=== PATIENT | female | born 1985 | race Caucasian/White ===

== ENCOUNTER 2017-02-27 14:26 | Emergency (ER) | payer OTHER ==
[2017-02-27] MEDS ORDERED: methylPREDNISolone SOD SUCCI 125 MG/2 ML VIAL IV STA (14:54)
[2017-02-27] MEDS ORDERED: IPRATROPIUM-ALBUTEROL 3 ML NEB INHALATION STA (14:54)
[2017-02-27] MEDS ORDERED: SODIUM CHLORIDE 0.9% 1,000 ML IV STA (14:54)
[2017-02-27] MEDS ORDERED: SODIUM CHLORIDE 0.9% 500 ML IV STA (14:54)
[2017-02-27] MEDS ORDERED: KETOROLAC 30 MG/ML 1 ML VIAL IVP STA (14:55)
[2017-02-27 15:20] LABS: Basophils % (A) 1 %; CH 23.4; Eosinophils # (A) 0.1 k/uL (0-0.7); Eosinophils % (A) 1 %; HCT 34.9 % (34.0-46.0); HDW 2.84; HGB 10.9 gm/dL (11.4-16.0); Hypochromasia Marked; Luc # (Auto) 0.25; Luc % (Auto) 3; Lymphocytes # (A) 1.1 k/uL (1.0-4.8); Lymphocytes % (A) 14 %; MCH 24.4 pg (25.0-35.0); MCHC 31.3 g/dL (31.0-37.0); MCV 78.1 fL (80.0-100.0); Mean Platelet Volume 6.2; Monocytes # (A) 0.7 k/uL (0-1.0); Monocytes % (A) 9 %; Neutrophils # (A) 5.4 k/uL (1.3-7.7); Neutrophils % (A) 72 %; RBC 4.47 m/uL (3.80-5.40); RDW 13.5 % (11.5-15.5); WBC 7.5 k/uL (3.8-10.6); WBC (Perox) 7.98
--- NOTE | 2017-02-27 15:21 | ED ---
General Adult HPI - General Chief complaint: Extremity Problem,Nontraumatic Stated complaint: Poss Blood Clots Time Seen by Provider: 02/27/17 14:42 Source: patient Mode of arrival: ambulatory Limitations: no limitations - History of Present Illness Initial comments: This 31-year-old white female presents with 2 complaints. She complains of having a cough as well as nasal congestion which started this morning. She has felt short of breath at times. She complains of some pain throughout her head chest and abdomen when she coughs. She denies any actual fever. She denies any history of pulmonary problems but does utilize tobacco regularly. She also is complaining of some right arm pain which she's had for 2 weeks. She denies any injuries. She denies any swelling. She does have a history of previous pulmonary embolism 5 years ago when she was . She is on blood thinners for 6 months afterwards but is on no blood thinners currently. She was sent in from an urgent care to rule out the possibility of an upper extremity DVT. No other complaints or modifying factors. - Related Data Home Medications Medication Instructions Recorded Confirmed Ranitidine HCl [Zantac] 75 mg PO BID 11/02/15 02/27/17 Venlafaxine HCl [Effexor XR] 75 mg PO DAILY 11/02/15 02/27/17 clonazePAM [KlonoPIN] 0.5 mg PO BID 11/02/15 02/27/17 Loratadine [Claritin] 10 mg PO BID 02/27/17 02/27/17 Previous Rx's Medication Instructions Recorded predniSONE 20 mg PO BID #10 tab 02/27/17 Allergies Allergy/AdvReac Type Severity Reaction Status Date / Time No Known Allergies Allergy Verified 02/27/17 15:33 Review of Systems ROS Statement: Those systems with pertinent positive or pertinent negative responses have been documented in the HPI. ROS Other: All systems not noted in ROS Statement are negative. Past Medical History Past Medical History: Deep Vein Thrombosis (DVT) Additional Past Medical History / Comment(s): bipolar History of Any Multi-Drug Resistant Organisms: MRSA Date of last positivie culture/infection: 2012 MDRO Source:: head Past Surgical History: Tonsillectomy Past Psychological History: Bipolar Smoking Status: Current every day smoker Past Alcohol Use History: None Reported Past Drug Use History: Marijuana General Exam - General Exam Comments Initial Comments: GENERAL: The patient is well nourished and well hydrated. VITAL SIGNS: Heart rate, blood pressure, respiratory rate reviewed as recorded in nurse's notes. EYES: Pupils are round and reactive. Extraocular movements are intact. No conjunctival / lid redness or swelling. ENT: No external evidence of injury, swelling, or ecchymosis. Airway is patent. Throat is clear. NECK: Nontender. No swelling or evidence of injury. No subcutaneous emphysema. Trachea is midline. No thyroid mass. HEART: Regular rate and rhythm. Good peripheral pulses. LUNGS/CHEST: There is some mild wheezing noted bilaterally. No respiratory distress. Pulse ox is 100% on room air. No ecchymosis, subcutaneous emphysema , or tenderness. ABDOMEN: Abdomen soft without tenderness. No palpable masses or organomegaly. No peritoneal signs. No abdominal wall swelling or ecchymosis. EXTREMITIES: There is minimal tenderness present to the right arm diffusely. No swelling is identified. Normal muscle tone and function. No thoracolumbar tenderness. NEUROLOGIC: Sensation is grossly intact. Cranial nerve exam reveals face is symmetrical, tongue is midline, speech is clear. SKIN: No abrasions or ecchymosis is noted. No induration or masses noted. PSYCHIATRIC: Alert and oriented. Appropriate behavior and judgment. Limitations: no limitations Course Vital Signs 02/27/17 02/27/17 14:35 16:48 Temperature 99.0 F Pulse Rate 100 90 Respiratory 20 Rate Blood Pressure 126/57 O2 Sat by Pulse 100 Oximetry Medical Decision Making - Medical Decision Making The patient was seen and examined. All diagnostics were reviewed. An EKG was done which shows a normal sinus rhythm at a rate of 100. No acute ST-T wave changes are noted. Intervals are normal. An IV is started and she does receive some IV fluids as well as Toradol. She receives Solu-Medrol intravenously as well as 2 DuoNeb breathing treatments. The laboratory came back all essentially within normal limits except for some mild anemia. The d- dimer was negative. The chest x-ray did not show any pneumonia. The right upper extremity Doppler was negative for any DVT. The influenza was negative. Is felt that she likely does have bronchitis and sinusitis. She was prescribed Augmentin and a cough medication at the urgent care clinic. It is felt as though she may benefit from a steroid is well will be initiated. She does have albuterol HFA at home. This felt as though she is stable for discharge. Return parameters are discussed and she leaves in no distress. - Lab Data Result diagrams: 02/27/17 15:00 02/27/17 15:00 Lab Results 02/27/17 02/27/17 02/27/17 Range/Units 15:00 15:00 15:00 WBC 7.5 (3.8-10.6) k/uL RBC 4.47 (3.80-5.40) m/uL Hgb 10.9 L (11.4-16.0) gm/dL Hct 34.9 (34.0-46.0) % MCV 78.1 L (80.0-100.0) fL MCH 24.4 L (25.0-35.0) pg MCHC 31.3 (31.0-37.0) g/dL RDW 13.5 (11.5-15.5) % Plt Count 555 H (150-450) k/uL Neutrophils % 72 % Lymphocytes % 14 % Monocytes % 9 % Eosinophils % 1 % Basophils % 1 % Neutrophils # 5.4 (1.3-7.7) k/uL Lymphocytes # 1.1 (1.0-4.8) k/uL Monocytes # 0.7 (0-1.0) k/uL Eosinophils # 0.1 (0-0.7) k/uL Basophils # 0.0 (0-0.2) k/uL Hypochromasia Marked PT (9.0-12.0) sec INR (<1.1) APTT (22.0-30.0) sec D-Dimer (<0.60) mg/L FEU Sodium 141 (137-145) mmol/L Potassium 4.3 (3.5-5.1) mmol/L Chloride 104 (98-107) mmol/L Carbon Dioxide 25 (22-30) mmol/L Anion Gap 12 mmol/L BUN 8 (7-17) mg/dL Creatinine 0.67 (0.52-1.04) mg/dL Est GFR (MDRD) Af Amer >60 (>60 ml/min/1.73 sqM) Est GFR (MDRD) Non-Af >60 (>60 ml/min/1.73 sqM) Glucose 95 (74-99) mg/dL Calcium 9.3 (8.4-10.2) mg/dL Total Bilirubin 1.3 (0.2-1.3) mg/dL AST 19 (14-36) U/L ALT 24 (9-52) U/L Alkaline Phosphatase 68 (38-126) U/L Total Creatine Kinase 53 (30-135) U/L CK-MB (CK-2) <0.2 (0.0-2.4) ng/mL CK-MB (CK-2) Rel Index Troponin I <0.012 (0.000-0.034) ng/mL Total Protein 7.5 (6.3-8.2) g/dL Albumin 4.3 (3.5-5.0) g/dL HCG, Qual Not Detected Influenza Type A RNA (Not Detectd) Influenza Type B (PCR) (Not Detectd) 02/27/17 02/27/17 Range/Units 15:00 15:24 WBC (3.8-10.6) k/uL RBC (3.80-5.40) m/uL Hgb (11.4-16.0) gm/dL Hct (34.0-46.0) % MCV (80.0-100.0) fL MCH (25.0-35.0) pg MCHC (31.0-37.0) g/dL RDW (11.5-15.5) % Plt Count (150-450) k/uL Neutrophils % % Lymphocytes % % Monocytes % % Eosinophils % % Basophils % % Neutrophils # (1.3-7.7) k/uL Lymphocytes # (1.0-4.8) k/uL Monocytes # (0-1.0) k/uL Eosinophils # (0-0.7) k/uL Basophils # (0-0.2) k/uL Hypochromasia PT 12.7 H (9.0-12.0) sec INR 1.3 (<1.1) APTT 24.6 (22.0-30.0) sec D-Dimer 0.18 (<0.60) mg/L FEU Sodium (137-145) mmol/L Potassium (3.5-5.1) mmol/L Chloride (98-107) mmol/L Carbon Dioxide (22-30) mmol/L Anion Gap mmol/L BUN (7-17) mg/dL Creatinine (0.52-1.04) mg/dL Est GFR (MDRD) Af Amer (>60 ml/min/1.73 sqM) Est GFR (MDRD) Non-Af (>60 ml/min/1.73 sqM) Glucose (74-99) mg/dL Calcium (8.4-10.2) mg/dL Total Bilirubin (0.2-1.3) mg/dL AST (14-36) U/L ALT (9-52) U/L Alkaline Phosphatase (38-126) U/L Total Creatine Kinase (30-135) U/L CK-MB (CK-2) (0.0-2.4) ng/mL CK-MB (CK-2) Rel Index Troponin I (0.000-0.034) ng/mL Total Protein (6.3-8.2) g/dL Albumin (3.5-5.0) g/dL HCG, Qual Influenza Type A RNA Not Detected (Not Detectd) Influenza Type B (PCR) Not Detected (Not Detectd) Disposition Clinical Impression: Bronchospasm with bronchitis, acute, Sinusitis, Right arm pain, Anemia Disposition: HOME SELF-CARE Condition: Good Instructions: Acute Bronchitis (ED), Sinusitis (ED), Anemia (ED), Arm Pain (ED) Prescriptions: predniSONE 20 mg PO BID #10 tab Referrals: Kasia Pitt MD [Primary Care Provider] - 1-2 days Time of Disposition: 16:59
[2017-02-27 15:31] LABS: ALT 24 U/L (9-52); AST 19 U/L (14-36); Alkaline Phosphatase 68 U/L (38-126); Anion Gap 12 mmol/L; Blood Urea Nitrogen 8 mg/dL (7-17); Calcium 9.3 mg/dL (8.4-10.2); Carbon Dioxide 25 mmol/L (22-30); Chloride 104 mmol/L (98-107); Glucose 95 mg/dL (74-99); Non-African American GFR(MDRD) >60 (>60 ml/min/1.73 sqM); Potassium 4.3 mmol/L (3.5-5.1); Sodium 141 mmol/L (137-145); Total Bilirubin 1.3 mg/dL (0.2-1.3); Total Protein 7.5 g/dL (6.3-8.2)
[2017-02-27 15:33] LABS: INR 1.3 (<1.1); Partial Thromboplastin Time 24.6 sec (22.0-30.0); Prothrombin Time 12.7 sec (9.0-12.0)
[2017-02-27 15:48] LABS: Creatine Kinase 53 U/L (30-135)
[2017-02-27 15:54] LABS: HCG,Qualitative Serum Not Detected
[2017-02-27 16:02] LABS: Creatine Kinase MB <0.2 ng/mL (0.0-2.4); Troponin I <0.012 ng/mL (0.000-0.034)
--- NOTE | 2017-02-27 16:19 | US ---
EXAMINATION TYPE: US venous doppler duplex UE RT DATE OF EXAM: 02/27/2017 4:01 PM COMPARISON: NONE CLINICAL HISTORY: Pain. Numbness/tingling of arm, no trauma SIDE PERFORMED: right compression and/ or demonstrated Right Arm: Negative for DVT IMPRESSION: THIS EXAMINATION IS NEGATIVE FOR DVT IN THE RIGHT ARM.
--- NOTE | 2017-02-27 16:25 | XR ---
EXAMINATION TYPE: XR chest 2V DATE OF EXAM ORDERED: 02/27/2017 4:21 PM HISTORY: difficulty breathing. REFERENCE: Previous study dated 7:26 PM. FINDINGS: The lungs are clear. Pleural spaces are clear. Heart size is normal. IMPRESSION: NORMAL CHEST.
[2017-02-27 17:13] VITALS: BP 136/60; PULSE 101; RESP 16; TEMP 99.1
== END 2017-02-27 17:13 | disposition home or self-care (01) ==
LOC: EC 14:26
DX: J20.9 Acute bronchitis, unspecified (principal); M79.601 Pain in right arm; D64.9 Anemia, unspecified; J32.9 Chronic sinusitis, unspecified; F17.200 Nicotine dependence, unspecified, uncomplicated; Z79.899 Other long term (current) drug therapy
CPT/HCPCS: 99284; 96374; 96375; 96361 ×2; 36415; 94640; 93005; 85379; 80053; 82550; 82553; 84484; 85025; 85610; 85730; 84703; 87040; 87502; 71020; 93971; J2930; J1885

== ENCOUNTER 2017-04-08 09:09 | Emergency (ER) | payer OTHER ==
[2017-04-08 09:33] VITALS: RESP 18
[2017-04-08] MEDS ORDERED: ONDANSETRON 4 MG/2 ML VIAL IVP STA (09:47)
[2017-04-08] MEDS ORDERED: SODIUM CHLORIDE 0.9% 1,000 ML IV STA (09:47)
[2017-04-08] MEDS ORDERED: FAMOTIDINE 20 MG/2 ML VIAL IV STA (09:47)
[2017-04-08] MEDS ORDERED: KETOROLAC 30 MG/ML 1 ML VIAL IVP STA (09:48)
--- NOTE | 2017-04-08 10:24 | ED ---
General Adult HPI - General Chief complaint: Abdominal Pain Stated complaint: Abd Pain Time Seen by Provider: 04/08/17 09:34 Source: patient, RN notes reviewed Mode of arrival: ambulatory Limitations: no limitations - History of Present Illness Initial comments: Patient is a 31-year-old female who presents emergency room today with chief complaint of increased back and abdominal pain that started this morning approximately 6 AM. Does admit to symptoms of nausea vomiting as well. Patient mitts pain in the middle of her lower back. States had similar pain to this in the past but is been a while. Denies any injury or trauma. Does admit to generalized abdominal pain and cramping in her abdomen. Patient denies any recent fever, chills, shortness of breath, chest pain, numbness or tingling, dysuria or hematuria, constipation or diarrhea, headaches or visual changes, or any other complaints. - Related Data Home Medications Medication Instructions Recorded Confirmed Ranitidine HCl [Zantac] 75 mg PO BID 11/02/15 04/08/17 Venlafaxine HCl [Effexor XR] 75 mg PO DAILY 11/02/15 04/08/17 clonazePAM [KlonoPIN] 0.5 mg PO BID 11/02/15 04/08/17 Loratadine [Claritin] 10 mg PO BID 02/27/17 04/08/17 Previous Rx's Medication Instructions Recorded Famotidine [Pepcid] 20 mg PO BID #20 tablet 04/08/17 Ondansetron Odt [Zofran ODT] 4 mg PO Q8HR PRN #20 tab 04/08/17 Allergies Allergy/AdvReac Type Severity Reaction Status Date / Time No Known Allergies Allergy Verified 04/08/17 10:42 Review of Systems ROS Statement: Those systems with pertinent positive or pertinent negative responses have been documented in the HPI. ROS Other: All systems not noted in ROS Statement are negative. Past Medical History Past Medical History: Deep Vein Thrombosis (DVT) Additional Past Medical History / Comment(s): bipolar History of Any Multi-Drug Resistant Organisms: MRSA Date of last positivie culture/infection: 2012 MDRO Source:: head Past Surgical History: Tonsillectomy Past Psychological History: Bipolar Smoking Status: Current every day smoker Past Alcohol Use History: None Reported Past Drug Use History: Marijuana General Exam - General Exam Comments Initial Comments: General: The patient is awake and alert, in no distress, and does not appear acutely ill. Eye: Pupils are equal, round and reactive to light, extra-ocular movements are intact. No nystagmus. There is normal conjunctiva bilaterally. No signs of icterus. Ears, nose, mouth and throat: There are moist mucous membranes and no oral lesions. Neck: The neck is supple, there is no tenderness or JVD. Cardiovascular: There is a regular rate and rhythm. No murmur, rub or gallop is appreciated. Respiratory: Lungs are clear to auscultation, respirations are non-labored, breath sounds are equal. No wheezes, stridor, rales, or rhonchi. Gastrointestinal: Normal appearance the abdomen. Normal bowel sounds. Abdomen soft on palpation. Patient does have tenderness in epigastric and lower quadrant. No rebound tenderness. No guarding. No CVA tenderness. Musculoskeletal: Normal ROM, no tenderness. Strength 5/5. Sensation intact. Pulses equal bilaterally 2+. Neurological: A&O x 3. CN II-XII intact, There are no obvious motor or sensory deficits. Coordination appears grossly intact. Speech is normal. Skin: Skin is warm and dry and no rashes or lesions are noted. Psychiatric: Cooperative, appropriate mood & affect, normal judgment. Limitations: no limitations Course Vital Signs 04/08/17 09:30 Temperature 98.0 F Pulse Rate 89 Respiratory 18 Rate Blood Pressure 119/65 O2 Sat by Pulse 100 Oximetry Medical Decision Making - Medical Decision Making Patient reexamined at this time shows no signs of distress. Patient's labs been reviewed. Patient resting comfortably in the stretcher. Abdomen soft nontender on repeat exam. Patient feeling better. Patient will be discharged home with nausea medication and Pepcid for symptoms. Advised to follow-up with family doctor or return here to emergency room if any symptoms increase worsen. - Lab Data Result diagrams: 04/08/17 10:05 04/08/17 10:05 Lab Results 04/08/17 04/08/17 04/08/17 Range/Units 10:05 10:05 10:05 WBC 11.5 H (3.8-10.6) k/uL RBC 4.50 (3.80-5.40) m/uL Hgb 11.2 L (11.4-16.0) gm/dL Hct 36.8 (34.0-46.0) % MCV 81.7 (80.0-100.0) fL MCH 24.9 L (25.0-35.0) pg MCHC 30.5 L (31.0-37.0) g/dL RDW 17.3 H (11.5-15.5) % Plt Count 474 H (150-450) k/uL Neutrophils % 83 % Lymphocytes % 10 % Monocytes % 5 % Eosinophils % 1 % Basophils % 0 % Neutrophils # 9.5 H (1.3-7.7) k/uL Lymphocytes # 1.2 (1.0-4.8) k/uL Monocytes # 0.5 (0-1.0) k/uL Eosinophils # 0.1 (0-0.7) k/uL Basophils # 0.0 (0-0.2) k/uL Hypochromasia Marked Anisocytosis Slight Sodium 140 (137-145) mmol/L Potassium 4.7 (3.5-5.1) mmol/L Chloride 107 (98-107) mmol/L Carbon Dioxide 23 (22-30) mmol/L Anion Gap 10 mmol/L BUN 14 (7-17) mg/dL Creatinine 0.58 (0.52-1.04) mg/dL Est GFR (MDRD) Af Amer >60 (>60 ml/min/1.73 sqM) Est GFR (MDRD) Non-Af >60 (>60 ml/min/1.73 sqM) Glucose 96 (74-99) mg/dL Calcium 9.3 (8.4-10.2) mg/dL Total Bilirubin 0.4 (0.2-1.3) mg/dL AST 18 (14-36) U/L ALT 20 (9-52) U/L Alkaline Phosphatase 61 (38-126) U/L Total Protein 7.3 (6.3-8.2) g/dL Albumin 4.1 (3.5-5.0) g/dL Amylase 43 (30-110) U/L Lipase 52 (23-300) U/L Urine Color Urine Appearance (Clear) Urine pH (5.0-8.0) Ur Specific [place] (1.001-1.035) Urine Protein (Negative) Urine Glucose (UA) (Negative) Urine Ketones (Negative) Urine Blood (Negative) Urine Nitrite (Negative) Urine Bilirubin (Negative) Urine Urobilinogen (<2.0) mg/dL Ur Leukocyte Esterase (Negative) Urine HCG, Qual Not Detected (Not Detectd) 04/08/17 Range/Units 10:05 WBC (3.8-10.6) k/uL RBC (3.80-5.40) m/uL Hgb (11.4-16.0) gm/dL Hct (34.0-46.0) % MCV (80.0-100.0) fL MCH (25.0-35.0) pg MCHC (31.0-37.0) g/dL RDW (11.5-15.5) % Plt Count (150-450) k/uL Neutrophils % % Lymphocytes % % Monocytes % % Eosinophils % % Basophils % % Neutrophils # (1.3-7.7) k/uL Lymphocytes # (1.0-4.8) k/uL Monocytes # (0-1.0) k/uL Eosinophils # (0-0.7) k/uL Basophils # (0-0.2) k/uL Hypochromasia Anisocytosis Sodium (137-145) mmol/L Potassium (3.5-5.1) mmol/L Chloride (98-107) mmol/L Carbon Dioxide (22-30) mmol/L Anion Gap mmol/L BUN (7-17) mg/dL Creatinine (0.52-1.04) mg/dL Est GFR (MDRD) Af Amer (>60 ml/min/1.73 sqM) Est GFR (MDRD) Non-Af (>60 ml/min/1.73 sqM) Glucose (74-99) mg/dL Calcium (8.4-10.2) mg/dL Total Bilirubin (0.2-1.3) mg/dL AST (14-36) U/L ALT (9-52) U/L Alkaline Phosphatase (38-126) U/L Total Protein (6.3-8.2) g/dL Albumin (3.5-5.0) g/dL Amylase (30-110) U/L Lipase (23-300) U/L Urine Color Yellow Urine Appearance Clear (Clear) Urine pH 6.0 (5.0-8.0) Ur Specific [place] 1.022 (1.001-1.035) Urine Protein Negative (Negative) Urine Glucose (UA) Negative (Negative) Urine Ketones Negative (Negative) Urine Blood Negative (Negative) Urine Nitrite Negative (Negative) Urine Bilirubin Negative (Negative) Urine Urobilinogen <2.0 (<2.0) mg/dL Ur Leukocyte Esterase Negative (Negative) Urine HCG, Qual (Not Detectd) Disposition Clinical Impression: Abdominal pain Disposition: HOME SELF-CARE Condition: Good Instructions: Abdominal Pain (ED) Additional Instructions: Please use medication as discussed. Please follow-up with family doctor in the next 2 days of symptoms have not improved. Please return to emergency room if the symptoms increase or worsen or for any other concerns. Prescriptions: Famotidine [Pepcid] 20 mg PO BID #20 tablet Ondansetron Odt [Zofran ODT] 4 mg PO Q8HR PRN #20 tab PRN Reason: Nausea Referrals: Kasia Pitt MD [Primary Care Provider] - 1-2 days Time of Disposition: 11:05
[2017-04-08 10:26] LABS: Anisocytosis Slight; Basophils % (A) 0 %; CH 24.5; Eosinophils # (A) 0.1 k/uL (0-0.7); Eosinophils % (A) 1 %; HCT 36.8 % (34.0-46.0); HDW 2.53; HGB 11.2 gm/dL (11.4-16.0); Hypochromasia Marked; Luc # (Auto) 0.17; Luc % (Auto) 2; Lymphocytes # (A) 1.2 k/uL (1.0-4.8); Lymphocytes % (A) 10 %; MCH 24.9 pg (25.0-35.0); MCHC 30.5 g/dL (31.0-37.0); MCV 81.7 fL (80.0-100.0); Mean Platelet Volume 6.4; Monocytes # (A) 0.5 k/uL (0-1.0); Monocytes % (A) 5 %; Neutrophils # (A) 9.5 k/uL (1.3-7.7); Neutrophils % (A) 83 %; RDW 17.3 % (11.5-15.5); WBC 11.5 k/uL (3.8-10.6); WBC (Perox) 12.11
[2017-04-08 10:37] LABS: Appearance,Urine Clear (Clear); Bilirubin,Urine Negative (Negative); Glucose,Urine (UA) Negative (Negative); Ketones,Urine Negative (Negative); Leukocyte Esterase,Urine Negative (Negative); Nitrite,Urine Negative (Negative); Protein,Urine Negative (Negative); Specific Gravity,Urine 1.022 (1.001-1.035); UA Billing (MACRO vs. MICRO) CHEM; Urobilinogen,Urine <2.0 mg/dL (<2.0)
[2017-04-08 10:39] LABS: ALT 20 U/L (9-52); AST 18 U/L (14-36); Alkaline Phosphatase 61 U/L (38-126); Amylase 43 U/L (30-110); Anion Gap 10 mmol/L; Blood Urea Nitrogen 14 mg/dL (7-17); Calcium 9.3 mg/dL (8.4-10.2); Carbon Dioxide 23 mmol/L (22-30); Chloride 107 mmol/L (98-107); Glucose 96 mg/dL (74-99); Non-African American GFR(MDRD) >60 (>60 ml/min/1.73 sqM); Potassium 4.7 mmol/L (3.5-5.1); Sodium 140 mmol/L (137-145); Total Bilirubin 0.4 mg/dL (0.2-1.3); Total Protein 7.3 g/dL (6.3-8.2)
--- NOTE | 2017-04-08 10:55 | XR ---
EXAMINATION TYPE: XR KUB DATE OF EXAM: 04/08/2017 10:52 AM COMPARISON: 07/01/2016 HISTORY: Nausea and vomiting TECHNIQUE: One view abdominal series FINDINGS: The osseous structures are intact. The bowel gas pattern is nonspecific. Lung bases are clear. Intr auterine device noted. IMPRESSION: 1. Nonspecific abdomen.
[2017-04-08 11:14] VITALS: BP 140/78; PULSE 69; TEMP 97.9
== END 2017-04-08 11:35 | disposition home or self-care (01) ==
LOC: EC 09:09
DX: R10.84 Generalized abdominal pain (principal); M54.5 Low back pain; R11.2 Nausea with vomiting, unspecified; F31.9 Bipolar disorder, unspecified; F17.200 Nicotine dependence, unspecified, uncomplicated; Z79.899 Other long term (current) drug therapy
CPT/HCPCS: 36415; 80053; 82150; 83690; 85025; 81003; 81025; 74000; 99284; 96374; 96375 ×2; 96361; J2405; J1885

== ENCOUNTER 2021-10-14 15:15 | Emergency (ER) | payer OTHER ==
--- NOTE | 2021-10-14 16:05 | XR ---
EXAMINATION TYPE: XR chest 2V DATE OF EXAM: 10/14/2021 COMPARISON: 10/27/2017 HISTORY: Cough TECHNIQUE: 2 views FINDINGS: Heart and mediastinum are normal. Lungs are clear. Diaphragm is normal. Bony thorax is inta ct. IMPRESSION: Normal chest. No change.
--- NOTE | 2021-10-14 18:52 | ED ---
General Adult HPI - General Chief complaint: Shortness of Breath Stated complaint: covid+/throat pain Time Seen by Provider: 10/14/21 18:28 Source: patient, RN notes reviewed, old records reviewed Mode of arrival: ambulatory Limitations: no limitations - History of Present Illness Initial comments: Patient is a 35-year-old female who is a known Covid positive for the last 3 weeks presents emergency department over concern for sore throat and swollen lymph nodes in her neck. She is concerned she may also a strep throat. She is also complaining of some mild sinus tenderness. Denies any fevers. He is tolerating by mouth intake. He was not vaccinated for COVID-19. Denies any cough, shortness of breath. Denies any known sick contacts. Denies any chest pain, abdominal pain, nausea, vomiting. She has no other acute complaints at this time. I evaluated the patient when she was placed in a room. - Related Data Home Medications Medication Instructions Recorded Confirmed Loratadine [Claritin] 10 mg PO BID 02/27/17 10/27/17 Naproxen 500 mg PO Q12H 10/27/17 10/27/17 Ranitidine HCl [Zantac] 150 mg PO BID 10/27/17 10/27/17 Venlafaxine HCl [Effexor XR] 150 mg PO HS 10/27/17 10/27/17 lamoTRIgine [LaMICtal] 25 mg PO BID 10/27/17 10/27/17 Previous Rx's Medication Instructions Recorded Hydrocodone/Acetaminophen [[place] 1 each PO Q4HR PRN #10 tab 10/27/17 5-325] Ibuprofen [Motrin] 600 mg PO Q6HR PRN #20 tab 10/27/17 Allergies Allergy/AdvReac Type Severity Reaction Status Date / Time No Known Allergies Allergy Verified 10/14/21 15:33 Review of Systems ROS Statement: Those systems with pertinent positive or pertinent negative responses have been documented in the HPI. Review of Systems: CONST: Denies fever EYES: Denies blurry vision ENT: Endorses nasal congestion, sore throat. C/V: Denies Chest pain RESP: Denies shortness of breath GI: Denies abdominal pain : Denies dysuria SKIN: Denies rash. MSK: Denies joint pain. NEURO: Denies headache ROS Other: All systems not noted in ROS Statement are negative. Past Medical History Past Medical History: Deep Vein Thrombosis (DVT) Additional Past Medical History / Comment(s): bipolar History of Any Multi-Drug Resistant Organisms: MRSA Date of last positivie culture/infection: 2012 MDRO Source:: head Past Surgical History: Hernia Repair, Tonsillectomy Additional Past Surgical History / Comment(s): kidney repair surg eye correction Past Psychological History: Bipolar Smoking Status: Current every day smoker Past Alcohol Use History: None Reported Past Drug Use History: Marijuana General Exam - General Exam Comments Initial Comments: General: Appears in no acute distress. Nontoxic appearing. HEAD: Normal with no signs of head trauma. EYES: PERRLA, EOMI, conjunctiva normal, no discharge. ENT: Grossly intact. Erythematous posterior oropharynx without exudates. No swelling. Uvula is midline. No stridor auscultated. Patient does have some bilateral submandibular lymph node mild swelling. No swelling of the floor the mouth. RESPIRATORY: Clear breath sounds bilaterally. No wheezes, rales, or rhonchi. C/V: Initially tachycardic in triage but currently regular rate and rhythm. S1 and S2 auscultated. No peripheral edema. Peripheral pulses are 2+ intact throughout. ABD: Abd is soft, nontender, nondistended EXT: Normal range of motion, no obvious deformity SKIN: No rashes or lesions observed on exposed skin. NEURO: Alert and oriented 4. Limitations: no limitations Course Vital Signs 10/14/21 10/14/21 15:30 19:01 Temperature 98 F 98.1 F Pulse Rate 108 H 72 Respiratory 20 18 Rate Blood Pressure 117/66 128/78 O2 Sat by Pulse 96 97 Oximetry Medical Decision Making - Medical Decision Making Based on the patient's presentation and physical exam, she already knows she is COVID-19 positive and tested positive multiple weeks ago. She does not qualify for Bham therapy. She is concerned she may strep throat if she does have a history of it. She otherwise is nontoxic appearing is no acute complaints at this time. Chest x-ray was ordered but triage which revealed no acute cardio pulmonary process. I discussed with her obtaining a strep throat swab. She was in agreement this plan. She'll be discharged home and I will contact her with the results. Her phone number was provided to me and is [phone]. I counseled her on on hot/cold drinks to soothe the throat as well as Tylenol Motrin. She was in agreement this plan. Patient was therefore discharged home in fair condition. Strep throat swabs returned negative. I called the patient and updated her. She expressed understanding. No antibiotic is required at this time. I explained That she is likely expressing a viral illness and to return to the emergency department if there are any worsening complaints. She was in agreement this plan. Strict return precautions were provided to the patient. - Lab Data Lab Results 10/14/21 Range/Units 18:46 Group A Strep Rapid Negative (Negative) Disposition Clinical Impression: Sore throat, Viral URI Disposition: HOME SELF-CARE Condition: Fair Instructions (If sedation given, give patient instructions): Strep Throat (ED) Is patient prescribed a controlled substance at d/c from ED?: No Referrals: Alvino Frank MD [Primary Care Provider] - 1-2 days
[2021-10-14 19:04] VITALS: BP 128/78; PULSE 72; RESP 18; TEMP 98.1
== END 2021-10-14 19:04 | disposition home or self-care (01) ==
LOC: EC 15:15
DX: U07.1 COVID-19 (principal); J02.8 Acute pharyngitis due to other specified organisms; F17.200 Nicotine dependence, unspecified, uncomplicated
CPT/HCPCS: 71046; 87081; 87430; 99283

== ENCOUNTER 2022-03-13 11:24 | Emergency (ER) | payer OTHER ==
[2022-03-13 11:32] VITALS: TEMP 97.9
--- NOTE | 2022-03-13 12:10 | ED ---
General Adult HPI - General Chief complaint: Upper Respiratory Infection Stated complaint: covid test Time Seen by Provider: 03/13/22 11:44 Source: patient Mode of arrival: ambulatory Limitations: no limitations - History of Present Illness Initial comments: This 36-year-old female presents emergency Department requesting to be tested for COVID-19. Patient states her daughter currently has symptoms of COVID-19 such as nasal congestion, cough and headache. Patient states she tested for COVID-19 within a home test this morning which did come back as positive. Patient states she is currently asymptomatic and states she feels well. Patient denies any chest pain, shortness of breath, abdominal pain, nausea, vomiting, sore throat, change in vision, blurred vision, lightheadedness, dizziness, nasal congestion, headache, earache. - Related Data Home Medications Medication Instructions Recorded Confirmed Loratadine [Claritin] 10 mg PO BID 02/27/17 10/27/17 Naproxen 500 mg PO Q12H 10/27/17 10/27/17 Ranitidine HCl [Zantac] 150 mg PO BID 10/27/17 10/27/17 Venlafaxine HCl [Effexor XR] 150 mg PO HS 10/27/17 10/27/17 lamoTRIgine [LaMICtal] 25 mg PO BID 10/27/17 10/27/17 Previous Rx's Medication Instructions Recorded Hydrocodone/Acetaminophen [[place] 1 each PO Q4HR PRN #10 tab 10/27/17 5-325] Ibuprofen [Motrin] 600 mg PO Q6HR PRN #20 tab 10/27/17 Allergies Allergy/AdvReac Type Severity Reaction Status Date / Time No Known Allergies Allergy Verified 03/13/22 11:27 Review of Systems ROS Statement: Those systems with pertinent positive or pertinent negative responses have been documented in the HPI. ROS Other: All systems not noted in ROS Statement are negative. Past Medical History Past Medical History: Deep Vein Thrombosis (DVT) Additional Past Medical History / Comment(s): bipolar History of Any Multi-Drug Resistant Organisms: MRSA Date of last positivie culture/infection: 2012 MDRO Source:: head Past Surgical History: Hernia Repair, Tonsillectomy Additional Past Surgical History / Comment(s): kidney repair surg eye correction Past Psychological History: Bipolar Smoking Status: Current every day smoker Past Alcohol Use History: None Reported Past Drug Use History: Marijuana General Exam Limitations: no limitations General appearance: alert, in no apparent distress Head exam: Present: atraumatic, normocephalic, normal inspection Eye exam: Present: normal appearance, PERRL, EOMI. Absent: scleral icterus, conjunctival injection, periorbital swelling Pupils: Present: normal accommodation ENT exam: Present: normal exam, normal oropharynx, mucous membranes moist Neck exam: Present: normal inspection, full ROM. Absent: tenderness, meningismus, lymphadenopathy Respiratory exam: Present: normal lung sounds bilaterally. Absent: respiratory distress, wheezes, rales, rhonchi, stridor, chest wall tenderness Cardiovascular Exam: Present: regular rate, normal rhythm, normal heart sounds. Absent: systolic murmur, diastolic murmur, rubs, gallop, clicks GI/Abdominal exam: Present: soft, normal bowel sounds. Absent: distended, tenderness, guarding, rebound, rigid Extremities exam: Present: normal inspection, full ROM, normal capillary refill. Absent: tenderness, pedal edema, joint swelling, calf tenderness Back exam: Absent: CVA tenderness (R), CVA tenderness (L), paraspinal tenderness, vertebral tenderness Neurological exam: Present: alert, oriented X3, CN II-XII intact Psychiatric exam: Present: normal affect, normal mood Skin exam: Present: warm, dry, intact, normal color. Absent: rash Course Vital Signs 03/13/22 03/13/22 11:27 12:10 Temperature 97.9 F Pulse Rate 96 Respiratory 16 18 Rate Blood Pressure 143/77 O2 Sat by Pulse 100 Oximetry Medical Decision Making - Medical Decision Making This 36-year-old female presented to the emergency department requesting to get tested for COVID-19. COVID-19 nasal swab was negative. Patient is currently asymptomatic. Patient instructed to follow up with her primary care provider or return here with any concerning symptoms. Strict return precautions were discussed. Patient verbally agreed to plan. Patient sent home in stable condition. Case discussed in detail my attending, Dr. Avelar. - Lab Data Lab Results 03/13/22 Range/Units 11:52 Coronavirus (PCR) Not Detected (Not Detectd) Disposition Clinical Impression: Encounter for screening laboratory testing for COVID-19 virus Disposition: HOME SELF-CARE Condition: Stable Additional Instructions: Please return to the emergency department with any new or concerning symptoms. Is patient prescribed a controlled substance at d/c from ED?: No Referrals: Alvino Frank MD [Primary Care Provider] - 1-2 days Time of Disposition: 13:01
[2022-03-13 12:26] VITALS: RESP 18
[2022-03-13 13:13] VITALS: BP 138/80; PULSE 88
== END 2022-03-13 13:10 | disposition home or self-care (01) ==
LOC: EC 11:24
DX: Z20.822 Contact with and (suspected) exposure to COVID-19 (principal); F17.200 Nicotine dependence, unspecified, uncomplicated
CPT/HCPCS: 87635; 99284

== ENCOUNTER 2023-04-02 18:20 | Emergency (ER) | payer OTHER ==
--- NOTE | 2023-04-02 20:00 | ED ---
General Adult HPI - General Chief complaint: Recheck/Abnormal Lab/Rx Stated complaint: High Blood Pressure Time Seen by Provider: 04/02/23 19:40 Source: patient, RN notes reviewed Mode of arrival: ambulatory Limitations: no limitations - History of Present Illness Initial comments: 37-year-old female presents to the emergency department chief complaint of fast heart rate and high blood pressure. Patient states that she was seen at [facility] earlier today for hives where she was given steroids discharged home. While there, she states that she was watching the monitor and her heart rate was around 45. She states that she asked the nurse why it was so low and was told it was likely the monitor. Patient continued to monitor her h eart rate when she got home and states that it was in the 120s then would go down to the 50s. She states that she was monitoring her blood pressure at home and it was elevated. In triage, her blood pressure was 127/75. She states that she feels tired but otherwise feels well. Denies chest pain, shortness of breath. Denies fever. - Related Data Home Medications Medication Instructions Recorded Confirmed Venlafaxine HCl [Effexor XR] 150 mg PO HS 10/27/17 04/02/23 Cholecalciferol [Vitamin D3 (25 25 mcg PO HS 04/02/23 04/02/23 Mcg = 1000 Iu)] clonazePAM [KlonoPIN] 0.5 mg PO BID PRN 04/02/23 04/02/23 lamoTRIgine [LaMICtal] 200 mg PO HS 04/02/23 04/02/23 Allergies Allergy/AdvReac Type Severity Reaction Status Date / Time No Known Allergies Allergy Verified 04/02/23 21:04 Review of Systems ROS Statement: Those systems with pertinent positive or pertinent negative responses have been documented in the HPI. ROS Other: All systems not noted in ROS Statement are negative. Past Medical History Past Medical History: Blood Disorder, Deep Vein Thrombosis (DVT) Additional Past Medical History / Comment(s): bipolar, clotting disorder History of Any Multi-Drug Resistant Organisms: MRSA Date of last positivie culture/infection: 2012 MDRO Source:: head Past Surgical History: Hernia Repair, Tonsillectomy Additional Past Surgical History / Comment(s): kidney repair surg eye correction Past Psychological History: Bipolar Smoking Status: Current every day smoker Past Alcohol Use History: None Reported Past Drug Use History: Marijuana General Exam Limitations: no limitations General appearance: alert, in no apparent distress Head exam: Present: atraumatic, normocephalic, normal inspection Eye exam: Present: normal appearance ENT exam: Present: normal exam, mucous membranes moist Neck exam: Present: normal inspection. Absent: tenderness, meningismus, lymphadenopathy Respiratory exam: Present: normal lung sounds bilaterally. Absent: respiratory distress, wheezes, rales, rhonchi, stridor Cardiovascular Exam: Present: regular rate, irregular rhythm, normal heart sounds. Absent: systolic murmur, diastolic murmur, rubs, gallop, clicks Extremities exam: Present: normal inspection, full ROM, normal capillary refill. Absent: tenderness, pedal edema, joint swelling, calf tenderness Back exam: Present: normal inspection Neurological exam: Present: alert, oriented X3 Psychiatric exam: Present: normal affect, normal mood Skin exam: Present: warm, dry, intact, normal color. Absent: rash Course Vital Signs 04/02/23 04/02/23 04/02/23 18:31 21:05 22:48 Temperature 99.1 F 98.2 F Pulse Rate 122 H 79 80 Respiratory 18 16 16 Rate Blood Pressure 127/75 122/78 126/80 O2 Sat by Pulse 97 98 99 Oximetry Medical Decision Making - Medical Decision Making Was pt. sent in by a medical professional or institution (TERE Panda, CHANNEL PROCESS SUPERVISOR, urgent care, hospital, or longterm...) When possible be specific @ -No Did you speak to anyone other than the patient for history (EMS, parent, family, police, friend...)? What history was obtained from this source @ -No Did you review nursing and triage notes (agree or disagree)? Why? @ -I reviewed and agree with nursing and triage notes Were old charts reviewed (outside hosp., previous admission, EMS record, old EK G, old radiological studies, urgent care reports/EKG's, longterm records)? Report findings @ -No old charts were reviewed Differential Diagnosis (chest pain, altered mental status, abdominal pain women, abdominal pain men, vaginal bleeding, weakness, fever, dyspnea, syncope, headache, dizziness, GI bleed, back pain, seizure, CVA, palpatations, mental health, musculoskeletal)? @ -Differential Palpitations Ventricular arrhythmias, atrial arrhythmias, myocardial infarction, anemia, thyrotoxicosis, electrolyte imbalance, hypokalemia, pulmonary embolism, pulmonary disease, drugs, alcohol, anxiety, stress.... This is not meant to be an all-inclusive list. EKG interpreted by me (3pts min.). @ -EKG at 1840 shows sinus tachycardia with frequent PVCs, rate 104, MA 139, QRS 86, QTQTc [id number] X-rays interpreted by me (1pt min.). @ -Chest x-ray was obtained which showed no acute cardiopulmonary process CT interpreted by me (1pt min.). @ -None done U/S interpreted by me (1pt. min.). @ -None done What testing was considered but not performed or refused? (CT, X-rays, U/S, labs)? Why? @ -None What meds were considered but not given or refused? Why? @ -None Did you discuss the management of the patient with other professionals (professionals i.e. , PA, CHANNEL PROCESS SUPERVISOR, lab, RT, psych nurse, long term care social worker, retail property manager, teacher, program officer, caseworker protective services)? Give summary @ -No Was smoking cessation discussed for >3mins.? @ -No Was critical care preformed (if so, how long)? @ -No Were there social determinants of health that impacted care today? How? (Homelessness, low income, unemployed, alcoholism, drug addiction, transportation, low edu. Level, literacy, decrease access to med. care, care home, rehab)? @ -No Was there de-escalation of care discussed even if they declined (Discuss DNR or withdrawal of care, Hospice)? DNR status @ -No What co-morbidities impacted this encounter? (DM, HTN, Smoking, COPD, CAD, Cancer, CVA, ARF, Chemo, Hep., AIDS, mental health diagnosis, sleep apnea, morbid obesity)? @ -None Was patient admitted / discharged? Hospital course, mention meds given and route, prescriptions, significant lab abnormalities, going to OR and other pertinent info. @ -Discharged. Patient presented to the emergency department with chief complaint of elevated blood pressure and heart rate. In triage patient's blood pressure was within normal limits. EKG at 1840 shows sinus tachycardia with frequent PVCs. Labwork was obtained. CBC showed WBC 12.1 likely due to the recent steroids that the patient was given; CMP showed sodium 135, potassium 4.5, chloride 105; troponin less than 0.012; TSH 0.209, T4 0.96; UA showed cloudy urine, 1+ protein, trace ketones, trace leukocyte esterase, patient is not having any urinary symptoms at this time. Chest x-ray was obtained which showed no acute cardiopulmonary process. Patient has an appointment scheduled with a energy specialist which she was instructed to follow up with. Strict return precautions were discussed with patient including development of chest pain, shortness of breath, fever. Patient advised follow-up with her primary care provider. She denies urgency stable condition. Case discussed my attending, Dr. Burks Undiagnosed new problem with uncertain prognosis? @ -No Drug Therapy requiring intensive monitoring for toxicity (Heparin, Nitro, Insulin, Cardizem)? @ -No Were any procedures done? @ -No Diagnosis/symptom? @ -palpitations] Acute, or Chronic, or Acute on Chronic? @ -Acute Uncomplicated (without systemic symptoms) or Complicated (systemic symptoms)? @ -Uncomplicated Side effects of treatment? @ -No Exacerbation, Progression, or Severe Exacerbation? @ -No Poses a threat to life or bodily function? How? (Chest pain, [place], GA, pneumonia, PE, COPD, DKA, ARF, appy, cholecystitis, CVA, Diverticulitis, Homicidal, Suicidal, threat to staff... and all critical care pts) @ -No - Lab Data Result diagrams: 04/02/23 20:02 04/02/23 20:02 Lab Results 04/02/23 04/02/23 04/02/23 Range/Units 20:02 20:02 20:02 WBC 12.1 H (3.8-10.6) k/uL RBC 4.94 (3.80-5.40) m/uL Hgb 12.3 (11.4-16.0) gm/dL Hct 39.3 (34.0-46.0) % MCV 79.5 L (80.0-100.0) fL MCH 24.9 L (25.0-35.0) pg MCHC 31.3 (31.0-37.0) g/dL RDW 14.6 (11.5-15.5) % Plt Count 626 H (150-450) k/uL MPV 7.3 Neutrophils % 89 % Lymphocytes % 9 % Monocytes % 2 % Eosinophils % 0 % Basophils % 0 % Neutrophils # 10.7 H (1.3-7.7) k/uL Lymphocytes # 1.0 (1.0-4.8) k/uL Monocytes # 0.3 (0-1.0) k/uL Eosinophils # 0.0 (0-0.7) k/uL Basophils # 0.0 (0-0.2) k/uL PT 12.3 H (9.0-12.0) sec INR 1.2 H (<1.2) APTT 24.9 (22.0-30.0) sec Sodium 135 L (137-145) mmol/L Potassium 4.5 (3.5-5.1) mmol/L Chloride 105 (98-107) mmol/L Carbon Dioxide 23 (22-30) mmol/L Anion Gap 7 mmol/L BUN 7 (7-17) mg/dL Creatinine 0.52 (0.52-1.04) mg/dL Est GFR (CKD-EPI)AfAm >90 (>60 ml/min/1.73 sqM) Est GFR (CKD-EPI)NonAf >90 (>60 ml/min/1.73 sqM) Glucose 108 H (74-99) mg/dL Calcium 9.6 (8.4-10.2) mg/dL Magnesium 2.0 (1.6-2.3) mg/dL Total Bilirubin 0.3 (0.2-1.3) mg/dL AST 23 (14-36) U/L ALT 20 (4-34) U/L Alkaline Phosphatase 62 (38-126) U/L Troponin I (0.000-0.034) ng/mL Total Protein 7.0 (6.3-8.2) g/dL Albumin 4.2 (3.5-5.0) g/dL TSH 0.209 L (0.465-4.680) mIU/L Free T4 (0.78-2.19) ng/dL Urine Color Urine Appearance (Clear) Urine pH (5.0-8.0) Ur Specific [place] (1.001-1.035) Urine Protein (Negative) Urine Glucose (UA) (Negative) Urine Ketones (Negative) Urine Blood (Negative) Urine Nitrite (Negative) Urine Bilirubin (Negative) Urine Urobilinogen (<2.0) mg/dL Ur Leukocyte Esterase (Negative) Urine RBC (0-5) /hpf Urine WBC (0-5) /hpf Ur Squamous Epith Cells (0-4) /hpf Urine Mucus (None) /hpf Urine HCG, Qual (Not Detectd) 04/02/23 04/02/23 04/02/23 Range/Units 20:02 20:02 20:02 WBC (3.8-10.6) k/uL RBC (3.80-5.40) m/uL Hgb (11.4-16.0) gm/dL Hct (34.0-46.0) % MCV (80.0-100.0) fL MCH (25.0-35.0) pg MCHC (31.0-37.0) g/dL RDW (11.5-15.5) % Plt Count (150-450) k/uL MPV Neutrophils % % Lymphocytes % % Monocytes % % Eosinophils % % Basophils % % Neutrophils # (1.3-7.7) k/uL Lymphocytes # (1.0-4.8) k/uL Monocytes # (0-1.0) k/uL Eosinophils # (0-0.7) k/uL Basophils # (0-0.2) k/uL PT (9.0-12.0) sec INR (<1.2) APTT (22.0-30.0) sec Sodium (137-145) mmol/L Potassium (3.5-5.1) mmol/L Chloride (98-107) mmol/L Carbon Dioxide (22-30) mmol/L Anion Gap mmol/L BUN (7-17) mg/dL Creatinine (0.52-1.04) mg/dL Est GFR (CKD-EPI)AfAm (>60 ml/min/1.73 sqM) Est GFR (CKD-EPI)NonAf (>60 ml/min/1.73 sqM) Glucose (74-99) mg/dL Calcium (8.4-10.2) mg/dL Magnesium (1.6-2.3) mg/dL Total Bilirubin (0.2-1.3) mg/dL AST (14-36) U/L ALT (4-34) U/L Alkaline Phosphatase (38-126) U/L Troponin I <0.012 (0.000-0.034) ng/mL Total Protein (6.3-8.2) g/dL Albumin (3.5-5.0) g/dL TSH (0.465-4.680) mIU/L Free T4 (0.78-2.19) ng/dL Urine Color Yellow Urine Appearance Cloudy H (Clear) Urine pH 7.0 (5.0-8.0) Ur Specific [place] 1.030 (1.001-1.035) Urine Protein 1+ H (Negative) Urine Glucose (UA) 1+ H (Negative) Urine Ketones Trace H (Negative) Urine Blood Negative (Negative) Urine Nitrite Negative (Negative) Urine Bilirubin Negative (Negative) Urine Urobilinogen 2.0 (<2.0) mg/dL Ur Leukocyte Esterase Trace H (Negative) Urine RBC 2 (0-5) /hpf Urine WBC 2 (0-5) /hpf Ur Squamous Epith Cells 14 H (0-4) /hpf Urine Mucus Moderate H (None) /hpf Urine HCG, Qual Not Detected (Not Detectd) 04/02/23 Range/Units 21:12 WBC (3.8-10.6) k/uL RBC (3.80-5.40) m/uL Hgb (11.4-16.0) gm/dL Hct (34.0-46.0) % MCV (80.0-100.0) fL MCH (25.0-35.0) pg MCHC (31.0-37.0) g/dL RDW (11.5-15.5) % Plt Count (150-450) k/uL MPV Neutrophils % % Lymphocytes % % Monocytes % % Eosinophils % % Basophils % % Neutrophils # (1.3-7.7) k/uL Lymphocytes # (1.0-4.8) k/uL Monocytes # (0-1.0) k/uL Eosinophils # (0-0.7) k/uL Basophils # (0-0.2) k/uL PT (9.0-12.0) sec INR (<1.2) APTT (22.0-30.0) sec Sodium (137-145) mmol/L Potassium (3.5-5.1) mmol/L Chloride (98-107) mmol/L Carbon Dioxide (22-30) mmol/L Anion Gap mmol/L BUN (7-17) mg/dL Creatinine (0.52-1.04) mg/dL Est GFR (CKD-EPI)AfAm (>60 ml/min/1.73 sqM) Est GFR (CKD-EPI)NonAf (>60 ml/min/1.73 sqM) Glucose (74-99) mg/dL Calcium (8.4-10.2) mg/dL Magnesium (1.6-2.3) mg/dL Total Bilirubin (0.2-1.3) mg/dL AST (14-36) U/L ALT (4-34) U/L Alkaline Phosphatase (38-126) U/L Troponin I (0.000-0.034) ng/mL Total Protein (6.3-8.2) g/dL Albumin (3.5-5.0) g/dL TSH (0.465-4.680) mIU/L Free T4 0.96 (0.78-2.19) ng/dL Urine Color Urine Appearance (Clear) Urine pH (5.0-8.0) Ur Specific [place] (1.001-1.035) Urine Protein (Negative) Urine Glucose (UA) (Negative) Urine Ketones (Negative) Urine Blood (Negative) Urine Nitrite (Negative) Urine Bilirubin (Negative) Urine Urobilinogen (<2.0) mg/dL Ur Leukocyte Esterase (Negative) Urine RBC (0-5) /hpf Urine WBC (0-5) /hpf Ur Squamous Epith Cells (0-4) /hpf Urine Mucus (None) /hpf Urine HCG, Qual (Not Detectd) Disposition Clinical Impression: Palpitations Disposition: HOME SELF-CARE Condition: Stable Additional Instructions: Follow-up with your energy specialist and primary care physician. Please return to the Emergency Department if symptoms worsen or any other concerns. Is patient prescribed a controlled substance at d/c from ED?: No Referrals: Alvino Frank MD [Primary Care Provider] - 1-2 days Time of Disposition: 22:41
[2023-04-02 20:13] LABS: Basophils % (A) 0 %; Eosinophils % (A) 0 %; HCT 39.3 % (34.0-46.0); HGB 12.3 gm/dL (11.4-16.0); Lymphocytes % (A) 9 %; MCH 24.9 pg (25.0-35.0); MCHC 31.3 g/dL (31.0-37.0); MCV 79.5 fL (80.0-100.0); Mean Platelet Volume 7.3; Monocytes # (A) 0.3 k/uL (0-1.0); Monocytes % (A) 2 %; Neutrophils # (A) 10.7 k/uL (1.3-7.7); Neutrophils % (A) 89 %; Platelet Count 626 k/uL (150-450); RBC 4.94 m/uL (3.80-5.40); RDW 14.6 % (11.5-15.5); WBC 12.1 k/uL (3.8-10.6)
[2023-04-02 20:31] LABS: ALT 20 U/L (4-34); AST 23 U/L (14-36); African American GFR (CKD) >90 (>60 ml/min/1.73 sqM); Albumin 4.2 g/dL (3.5-5.0); Alkaline Phosphatase 62 U/L (38-126); Anion Gap 7 mmol/L; Blood Urea Nitrogen 7 mg/dL (7-17); Calcium 9.6 mg/dL (8.4-10.2); Carbon Dioxide 23 mmol/L (22-30); Chloride 105 mmol/L (98-107); Glucose 108 mg/dL (74-99); Non-African American GFR(CKD) >90 (>60 ml/min/1.73 sqM); Potassium 4.5 mmol/L (3.5-5.1); Sodium 135 mmol/L (137-145); Total Bilirubin 0.3 mg/dL (0.2-1.3)
--- NOTE | 2023-04-02 20:36 | XR ---
EXAMINATION TYPE: XR chest 2V DATE OF EXAM: 04/02/2023 8:12 PM COMPARISON: Chest radiographs from 08/14/2021 TECHNIQUE: XR chest 2V Frontal and lateral views of the chest. CLINICAL INDICATION:Female, 37 years old with history of dysrhythmia; FINDINGS: Lungs/Pleura: There is no evidence of pleural effusion, focal consolidation, or pneumothorax. Pulmonary vascularity: Unremarkable. Heart/mediastinum: Cardiomediastinal silhouette is unremarkable. Musculoskeletal: No acute osseous pathology. IMPRESSION: No acute cardiopulmonary disease/process.
[2023-04-02 20:57] LABS: Appearance,Urine Cloudy (Clear); Bilirubin,Urine Negative (Negative); Blood,Urine Negative (Negative); Color,Urine Yellow; Glucose,Urine (UA) 1+ (Negative); Ketones,Urine Trace (Negative); Leukocyte Esterase,Urine Trace (Negative); Mucus,Urine Moderate /hpf; Nitrite,Urine Negative (Negative); Protein,Urine 1+ (Negative); RBC,Urine 2 /hpf (0-5); Squamous Epithelial Cell,Urine 14 /hpf (0-4); WBC,Urine 2 /hpf (0-5)
[2023-04-02] MEDS ORDERED: SODIUM CHLORIDE 0.9% 1,000 ML IV ONE (20:58)
[2023-04-02 21:03] LABS: INR 1.2 (<1.2); Partial Thromboplastin Time 24.9 sec (22.0-30.0); Prothrombin Time 12.3 sec (9.0-12.0)
[2023-04-02 22:27] VITALS: RESP 16
[2023-04-02 22:49] VITALS: BP 126/80; PULSE 80; TEMP 98.2
== END 2023-04-02 22:49 | disposition home or self-care (01) ==
LOC: EC 18:20
DX: R00.2 Palpitations (principal); F31.9 Bipolar disorder, unspecified; F12.90 Cannabis use, unspecified, uncomplicated; F17.200 Nicotine dependence, unspecified, uncomplicated; Z79.899 Other long term (current) drug therapy
CPT/HCPCS: 36415; 71046; 80053; 81001; 81025; 83735; 84439; 84443; 84484; 85025; 85610; 85730; 93005; 96360; 99284

== ENCOUNTER 2023-11-08 21:27 | Emergency (ER) | payer OTHER ==
[2023-11-08 22:04] VITALS: TEMP 97.7
[2023-11-08] MEDS ORDERED: HYDROmorphone 1 MG/ML 1 ML SYRINGE IM STA (23:03)
[2023-11-08] MEDS ORDERED: diazePAM 5 MG TAB PO STA (23:04)
[2023-11-09] MEDS ORDERED: KETOROLAC 15 MG/ML 1 ML VIAL IM STA (00:49)
--- NOTE | 2023-11-09 01:17 | ED ---
Extremity Problem HPI - General Chief complaint: Extremity Problem,Nontraumatic Stated complaint: spasams in arm Time Seen by Provider: 11/08/23 21:50 Source: patient Mode of arrival: ambulatory Limitations: no limitations - History of Present Illness Initial comments: 37-year-old female with past medical history of bipolar disorder who presents to the emergency department reporting pain in her right neck that radiates into her arm. Denies any injuries. She was seen earlier at [facility]. She had a CT performed which was normal. She was discharged home on steroids and muscle relaxers. States that the medications are not helping and so she presents for further pain control. She denies any fevers. No concern for . No other alleviating, precipitating or modifying factors - Related Data Home Medications Medication Instructions Recorded Confirmed Venlafaxine HCl [Effexor XR] 150 mg PO HS 10/27/17 04/02/23 Cholecalciferol [Vitamin D3 (25 25 mcg PO HS 04/02/23 04/02/23 Mcg = 1000 Iu)] clonazePAM [KlonoPIN] 0.5 mg PO BID PRN 04/02/23 04/02/23 lamoTRIgine [LaMICtal] 200 mg PO HS 04/02/23 04/02/23 Previous Rx's Medication Instructions Recorded Orphenadrine [Norflex] 100 mg PO Q12H #14 tab 11/11/23 predniSONE 50 mg PO DAILY #5 tab 11/11/23 Gabapentin [Neurontin] 100 mg PO BID PRN 3 Days #6 cap 11/12/23 Allergies Allergy/AdvReac Type Severity Reaction Status Date / Time No Known Allergies Allergy Verified 11/08/23 21:42 Review of Systems ROS Statement: Those systems with pertinent positive or pertinent negative responses have been documented in the HPI. ROS Other: All systems not noted in ROS Statement are negative. Past Medical History Past Medical History: Blood Disorder, Deep Vein Thrombosis (DVT) Additional Past Medical History / Comment(s): bipolar, clotting disorder History of Any Multi-Drug Resistant Organisms: MRSA Date of last positivie culture/infection: 2012 MDRO Source:: head Past Surgical History: Hernia Repair, Hysterectomy, Tonsillectomy Additional Past Surgical History / Comment(s): kidney repair surg eye correction Past Psychological History: Bipolar Smoking Status: Current every day smoker Past Alcohol Use History: None Reported Past Drug Use History: Marijuana General Exam Limitations: no limitations General appearance: alert, in no apparent distress Head exam: Present: atraumatic, normocephalic, normal inspection Eye exam: Present: normal appearance, PERRL, EOMI. Absent: scleral icterus, conjunctival injection, periorbital swelling ENT exam: Present: normal exam, mucous membranes moist Neck exam: Present: normal inspection, tenderness (To palpation of the right trapezius muscle. She has 5 out of 5 muscle strength in the bilateral upper extremities). Absent: meningismus, lymphadenopathy Respiratory exam: Present: normal lung sounds bilaterally. Absent: respiratory distress, wheezes, rales, rhonchi, stridor Cardiovascular Exam: Present: regular rate, normal rhythm, normal heart sounds. Absent: systolic murmur, diastolic murmur, rubs, gallop, clicks GI/Abdominal exam: Present: soft, normal bowel sounds. Absent: distended, tenderness, guarding, rebound, rigid Extremities exam: Present: normal inspection, full ROM, normal capillary refill. Absent: tenderness, pedal edema, joint swelling, calf tenderness Back exam: Present: normal inspection Neurological exam: Present: alert, oriented X3, CN II-XII intact Psychiatric exam: Present: normal affect, normal mood Skin exam: Present: warm, dry, intact, normal color. Absent: rash Course Vital Signs 11/08/23 11/08/23 11/09/23 21:42 23:56 01:20 Temperature 97.7 F Pulse Rate 110 H 93 62 Respiratory 18 22 20 Rate Blood Pressure 120/65 111/60 119/60 O2 Sat by Pulse 98 98 98 Oximetry Medical Decision Making - Medical Decision Making Was pt. sent in by a medical professional or institution (, PA, PRINTER MACHINE, urgent care, hospital, or correction...) When possible be specific @ -No Did you speak to anyone other than the patient for history (EMS, parent, family, police, friend...)? What history was obtained from this source @ -No Did you review nursing and triage notes (agree or disagree)? Why? @ -I reviewed and agree with nursing and triage notes Were old charts reviewed (outside hosp., previous admission, EMS record, old EKG, old radiological studies, urgent care reports/EKG's, correction records)? Report findings @ -No old charts were reviewed Differential Diagnosis (chest pain, altered mental status, abdominal pain women, abdominal pain men, vaginal bleeding, weakness, fever, dyspnea, syncope, headache, dizziness, GI bleed, back pain, seizure, CVA, palpatations, mental health, musculoskeletal)? @ -Differential Musculoskeletal Muscular strain, contusion, ligament sprain, fracture, arthritis, septic arthritis, bursitis, cellulitis, muscle spasm, nerve compression, DVT, arterial occlusion, herpes zoster, electrolyte abnormality, tumor.... This is not meant to be in all inclusive list EKG interpreted by me (3pts min.). @ -Yes and demonstrates sinus rhythm with a rate of 90. MN interval 142. QRS 89. QTC of 396. Patient presents in a trigeminy rhythm. No acute ST segment elevations or depressions X-rays interpreted by me (1pt min.). @ -None done CT interpreted by me (1pt min.). @ -None done U/S interpreted by me (1pt. min.). @ -None done What testing was considered but not performed or refused? (CT, X-rays, U/S, labs)? Why? @ -Imaging however the patient was already seen at [facility] earlier in the day What meds were considered but not given or refused? Why? @ -None Did you discuss the management of the patient with other professionals (professionals i.e. , PA, PRINTER MACHINE, lab, RT, psych nurse, geriatric social worker, gantry rigger, teacher, commercial loan officer, case assembler)? Give summary @ -No Was smoking cessation discussed for >3mins.? @ -No Was critical care preformed (if so, how long)? @ -No Were there social determinants of health that impacted care today? How? (Homelessness, low income, unemployed, alcoholism, drug addiction, transportation, low edu. Level, literacy, decrease access to med. care, snf, rehab)? @ -No Was there de-escalation of care discussed even if they declined (Discuss DNR or withdrawal of care, Hospice)? DNR status @ -No What co-morbidities impacted this encounter? (DM, HTN, Smoking, COPD, CAD, Cancer, CVA, ARF, Chemo, Hep., AIDS, mental health diagnosis, sleep apnea, m orbid obesity)? @ -None Was patient admitted / discharged? Hospital course, mention meds given and route, prescriptions, significant lab abnormalities, going to OR and other pertinent info. @ -Upon arrival patient was placed into room 12. Thorough history and physical exam was performed. Pain is reproducible upon movement. Patient is given pain control. She does have improvement in her symptoms. She'll be discharged home at this time. Continued on her previously prescribed medications. Follow up with her doctor for physical therapy return for any new or worsening symptoms. Patient will plan to discharge in stable condition Undiagnosed new problem with uncertain prognosis? @ -No Drug Therapy requiring intensive monitoring for toxicity (Heparin, Nitro, Insulin, Cardizem)? @ -No Were any procedures done? @ -No Diagnosis/symptom? @ -Acute right trapezius strain Acute, or Chronic, or Acute on Chronic? @ -Acute Uncomplicated (without systemic symptoms) or (systemic symptoms)? @ -complicated Side affect of treatment? @ -No Exacerbation, Progression, or Severe Exacerbation? @ -No Poses a threat to life or bodily function? How? (Chest pain, [place], [place], pneumonia, PE, COPD, DKA, ARF, appy, cholecystitis, CVA, Diverticulitis, Homicidal, Suicidal, threat to staff... and all critical care pts) @ -No Disposition Clinical Impression: Arm pain, Cervical radiculopathy Disposition: HOME SELF-CARE Condition: Stable Instructions (If sedation given, give patient instructions): Cervical Radiculopathy (ED) Additional Instructions: Please follow-up with the orthospine specialist for further management of your symptoms. Continue taking the steroids and muscle relaxers as directed Is patient prescribed a controlled substance at d/c from ED?: No Referrals: Alvino Frank [Primary Care Provider] - 1-2 days Bradley Johnson DO [Doctor of Osteopathic Medicine] - 1-2 days Grey Barrios DO [Doctor of Osteopathic Medicine] - 1-2 days Time of Disposition: 01:16
[2023-11-09 01:41] VITALS: BP 119/60; PULSE 62; RESP 20
== END 2023-11-09 01:23 | disposition home or self-care (01) ==
LOC: EC 21:27
DX: M54.12 Radiculopathy, cervical region (principal); M79.601 Pain in right arm; F12.90 Cannabis use, unspecified, uncomplicated; F17.200 Nicotine dependence, unspecified, uncomplicated
CPT/HCPCS: 99283; 96372 ×2; 93005; J1170; J1885

== ENCOUNTER 2023-11-10 22:51 | Emergency (ER) | payer OTHER ==
[2023-11-10 23:05] VITALS: TEMP 97.9
[2023-11-10] MEDS ORDERED: HYDROmorphone 1 MG/ML 1 ML SYRINGE IM STA (23:33)
--- NOTE | 2023-11-10 23:42 | ED ---
General Adult HPI - General Chief complaint: Recheck/Abnormal Lab/Rx Stated complaint: Right Arm Pain, Muscle Spasms Time Seen by Provider: 11/10/23 23:06 Source: patient, RN notes reviewed, old records reviewed Mode of arrival: ambulatory Limitations: no limitations - History of Present Illness Initial comments: 37-year-old female presents emergency Department chief complaint right arm pain. Patient states that she's been having symptoms last several days. She has chronic neck issues in which she's had prior MRI. She states this isn't thousand 17. Patient states that the pain is worsened without acute trauma denies chest pain or shortness breath. She was seen here in emergency department yesterday and EKG which was normal states that she has had symptoms like this in the past which is not alleviating/his usual. She denies any headache no dizziness no other associated symptoms - Related Data Home Medications Medication Instructions Recorded Confirmed Venlafaxine HCl [Effexor XR] 150 mg PO HS 10/27/17 04/02/23 Cholecalciferol [Vitamin D3 (25 25 mcg PO HS 04/02/23 04/02/23 Mcg = 1000 Iu)] clonazePAM [KlonoPIN] 0.5 mg PO BID PRN 04/02/23 04/02/23 lamoTRIgine [LaMICtal] 200 mg PO HS 04/02/23 04/02/23 Previous Rx's Medication Instructions Recorded Orphenadrine [Norflex] 100 mg PO Q12H #14 tab 11/11/23 predniSONE 50 mg PO DAILY #5 tab 11/11/23 Allergies Allergy/AdvReac Type Severity Reaction Status Date / Time No Known Allergies Allergy Verified 11/08/23 21:42 Review of Systems ROS Statement: Those systems with pertinent positive or pertinent negative responses have been documented in the HPI. ROS Other: All systems not noted in ROS Statement are negative. Past Medical History Past Medical History: Blood Disorder, Deep Vein Thrombosis (DVT) Additional Past Medical History / Comment(s): bipolar, clotting disorder History of Any Multi-Drug Resistant Organisms: MRSA Date of last positivie culture/infection: 2012 MDRO Source:: head Past Surgical History: Hernia Repair, Hysterectomy, Tonsillectomy Additional Past Surgical History / Comment(s): kidney repair surg eye correction Past Psychological History: Bipolar Smoking Status: Current every day smoker Past Alcohol Use History: None Reported Past Drug Use History: Marijuana General Exam Limitations: no limitations General appearance: alert, in no apparent distress Head exam: Present: atraumatic, normocephalic, normal inspection Eye exam: Present: normal appearance, PERRL, EOMI. Absent: scleral icterus, conjunctival injection, periorbital swelling ENT exam: Present: normal exam, normal oropharynx, mucous membranes moist Neck exam: Present: normal inspection, full ROM. Absent: tenderness, meningismus, lymphadenopathy Respiratory exam: Present: normal lung sounds bilaterally. Absent: respiratory distress, wheezes, rales, rhonchi, stridor Cardiovascular Exam: Present: regular rate, normal rhythm, normal heart sounds. Absent: systolic murmur, diastolic murmur, rubs, gallop, clicks Extremities exam: Present: other (Upper extremity strength equal bilaterally neurovascular intact radial pulses equal bilaterally normal skin color, Normal warmth) Neurological exam: Present: alert, oriented X3, CN II-XII intact, reflexes normal. Absent: motor sensory deficit Course Vital Signs 11/10/23 22:52 Temperature 97.9 F Pulse Rate 98 Respiratory 18 Rate Blood Pressure 123/84 O2 Sat by Pulse 98 Oximetry Medical Decision Making - Medical Decision Making Was pt. sent in by a medical professional or institution (, PA, WELDER ASSEMBLER, urgent care, hospital, or skilled nursing...) When possible be specific @ -No Did you speak to anyone other than the patient for history (EMS, parent, family, police, friend...)? What history was obtained from this source @ -No Did you review nursing and triage notes (agree or disagree)? Why? @ -I reviewed and agree with nursing and triage notes Were old charts reviewed (outside hosp., previous admission, EMS record, old EKG, old radiological studies, urgent care reports/EKG's, skilled nursing records)? Report findings @ -No old charts were reviewed Differential Diagnosis (chest pain, altered mental status, abdominal pain women, abdominal pain men, vaginal bleeding, weakness, fever, dyspnea, syncope, headache, dizziness, GI bleed, back pain, seizure, CVA, palpatations, mental health, musculoskeletal)? @ -Cervical strain, cervical radiculopathy, right arm pain, DVT EKG interpreted by me (3pts min.). @ -None X-rays interpreted by me (1pt min.). @ -[X-ray cervical spine shows severe degenerative changes. CT interpreted by me (1pt min.). @ -None done U/S interpreted by me (1pt. min.). @ -None done What testing was considered but not performed or refused? (CT, X-rays, U/S, labs)? Why? @ -None What meds were considered but not given or refused? Why? @ -None Did you discuss the management of the patient with other professionals (johnson fraga i.eLeobardo Panda, PA, WELDER ASSEMBLER, lab, RT, psych nurse, social media intern, attorney lawyer, teacher, community development officer, rn case manager)? Give summary @ -No Was smoking cessation discussed for >3mins.? @ -No Was critical care preformed (if so, how long)? @ -No Were there social determinants of health that impacted care today? How? (Homelessness, low income, unemployed, alcoholism, drug addiction, transportation, low edu. Level, literacy, decrease access to med. care, care home, rehab)? @ -No Was there de-escalation of care discussed even if they declined (Discuss DNR or withdrawal of care, Hospice)? DNR status @ -No What co-morbidities impacted this encounter? (DM, HTN, Smoking, COPD, CAD, Cancer, CVA, ARF, Chemo, Hep., AIDS, mental health diagnosis, sleep apnea, morbid obesity)? @ -None Was patient admitted / discharged? Hospital course, mention meds given and route, prescriptions, significant lab abnormalities, going to OR and other pertinent info. @ -Discharge patient provided analgesics. Patient has degenerative changes cervical spine with radicular symptoms she is neurologically intact otherwise. Patient's has normal neurovascular exam OB follow-up with orthopedic spine Undiagnosed new problem with uncertain prognosis? @ -No Drug Therapy requiring intensive monitoring for toxicity (Heparin, Nitro, I nsulin, Cardizem)? @ -No Were any procedures done? @ -No Diagnosis/symptom? @ -Cervical radiculopathy, right arm pain cervical degenerative disc Acute, or Chronic, or Acute on Chronic? @ -Acute Uncomplicated (without systemic symptoms) or Complicated (systemic symptoms)? @ -Uncomplicated Side effects of treatment? @ -No Exacerbation, Progression, or Severe Exacerbation? @ -No Poses a threat to life or bodily function? How? (Chest pain, [place], [place], pneumonia, PE, COPD, DKA, ARF, appy, cholecystitis, CVA, Diverticulitis, Homicidal, S uicidal, threat to staff... and all critical care pts) @ -No Disposition Clinical Impression: Cervical radiculopathy, Cervical spine degeneration Disposition: HOME SELF-CARE Condition: Stable Instructions (If sedation given, give patient instructions): Cervical Radiculopathy (ED) Additional Instructions: Please return to the Emergency Department if symptoms worsen or any other concerns. Prescriptions: Orphenadrine [Norflex] 100 mg PO Q12H #14 tab predniSONE 50 mg PO DAILY #5 tab Is patient prescribed a controlled substance at d/c from ED?: No Referrals: Alvino Frank [Primary Care Provider] - 1-2 days Bradley Johnson DO [Doctor of Osteopathic Medicine] - 1-2 days Time of Disposition: 00:31
[2023-11-11] MEDS ORDERED: HYDROcodone/APAP 7.5-325MG 1 EACH TAB PO ONE (00:32)
[2023-11-11] MEDS ORDERED: ACET/COD 300 MG/30 MG STARTER PACK 6 TAB BTL PO STA (00:32)
--- NOTE | 2023-11-11 01:09 | XR ---
EXAMINATION TYPE: XR cervical spine comp DATE OF EXAM: 11/10/2023 11:51 PM CLINICAL INDICATION:Female, 37 years old with history of Right radicular symptoms; [facility] COMPARISON: None TECHNIQUE: The cervical spine was imaged in frontal, lateral, odontoid and bilateral oblique. FINDINGS: The osseous structures show normal alignment without evidence of an acute fracture. There are osteoph ytes noted throughout the cervical spine on the anterior and lateral aspects of the vertebral bodies. The intervertebral disk spaces are narrowed at multiple levels. Pedicles are intact. Soft tissues a re within normal limits. The odontoid appears intact. The neural foramen appear patent. IMPRESSION: 1. No fracture or dislocation. 2. Mild degenerative disc disease changes of the cervical spine. No evidence for significant neural f oraminal stenosis.
[2023-11-11 01:22] VITALS: BP 103/67; PULSE 96; RESP 20
== END 2023-11-11 01:13 | disposition home or self-care (01) ==
LOC: EC 22:51
DX: M54.12 Radiculopathy, cervical region (principal); M50.30 Other cervical disc degeneration, unspecified cervical region; F31.9 Bipolar disorder, unspecified; F12.90 Cannabis use, unspecified, uncomplicated; F17.200 Nicotine dependence, unspecified, uncomplicated; Z79.899 Other long term (current) drug therapy
CPT/HCPCS: 72050; 99283; 96372 ×2; J3360; J1170

== ENCOUNTER 2023-11-12 02:53 | Emergency (ER) | payer OTHER ==
[2023-11-12 03:19] VITALS: BP 132/76; PULSE 96; RESP 20; TEMP 97.8
[2023-11-12] MEDS ORDERED: MORPHINE SULFATE 4 MG/ML SYRINGE IM STA (03:39)
--- NOTE | 2023-11-12 03:39 | ED ---
General Adult HPI - General Chief complaint: Recheck/Abnormal Lab/Rx Stated complaint: Sharp pain in right arm Time Seen by Provider: 11/12/23 03:30 Source: patient, RN notes reviewed, old records reviewed Mode of arrival: ambulatory Limitations: no limitations - History of Present Illness Initial comments: Patient is a 37-year-old female presents emergency Department complaining of right arm radiculopathy. Times in the emergency department this week for similar complaints. Presents complaining of continued pain. Attempted to follow up with PCP yesterday however did not receive a phone call PAC. Cannot follow up with specialist until she sees her PCP. She plans on calling again today however states that the pain was worse this evening. Presents for further evaluation at this time. Is requesting something for pain. Denies any new symptoms. Denies any injury. He describes it that shooting pain and numbness reading down her right arm. - Related Data Home Medications Medication Instructions Recorded Confirmed Venlafaxine HCl [Effexor XR] 150 mg PO HS 10/27/17 04/02/23 Cholecalciferol [Vitamin D3 (25 25 mcg PO HS 04/02/23 04/02/23 Mcg = 1000 Iu)] clonazePAM [KlonoPIN] 0.5 mg PO BID PRN 04/02/23 04/02/23 lamoTRIgine [LaMICtal] 200 mg PO HS 04/02/23 04/02/23 Previous Rx's Medication Instructions Recorded Orphenadrine [Norflex] 100 mg PO Q12H #14 tab 11/11/23 predniSONE 50 mg PO DAILY #5 tab 11/11/23 Gabapentin [Neurontin] 100 mg PO BID PRN 3 Days #6 cap 11/12/23 Allergies Allergy/AdvReac Type Severity Reaction Status Date / Time No Known Allergies Allergy Verified 11/08/23 21:42 Review of Systems ROS Statement: Those systems with pertinent positive or pertinent negative responses have been documented in the HPI. Review of Systems: CONST: Denies fever EYES: Denies blurry vision ENT: Denies nasal congestion C/V: Denies Chest pain RESP: Denies shortness of breath GI: Denies abdominal pain : Denies dysuria SKIN: Denies rash. MSK: Endorses shooting right arm pain NEURO: Denies headache ROS Other: All systems not noted in ROS Statement are negative. Past Medical History Past Medical History: Blood Disorder, Deep Vein Thrombosis (DVT) Additional Past Medical History / Comment(s): bipolar, clotting disorder History of Any Multi-Drug Resistant Organisms: MRSA Date of last positivie culture/infection: 2012 MDRO Source:: head Past Surgical History: Hernia Repair, Hysterectomy, Tonsillectomy Additional Past Surgical History / Comment(s): kidney repair surg eye correction Past Psychological History: Bipolar Smoking Status: Current every day smoker Past Alcohol Use History: None Reported Past Drug Use History: Marijuana General Exam - General Exam Comments Initial Comments: General: Appears in no acute distress. HEAD: Normal with no signs of head trauma. EYES: EOMI ENT: Hearing grossly intact, normal oropharynx. RESPIRATORY: Clear breath sounds bilaterally. No wheezes, rales, or rhonchi. C/V: peripheral pulses 2+ and intact throughout ABD: Abd is soft, nontender, EXT: Normal range of motion, no obvious deformity. Pain is not reproducible on palpation of the right arm. SKIN: No rashes or lesions observed on exposed skin. NEURO: Alert and oriented x 4. Cranial nerves II-XII intact. No focal sensory or strength deficits. Limitations: no limitations Course Vital Signs 11/12/23 03:11 Temperature 97.8 F Pulse Rate 96 Respiratory 20 Rate Blood Pressure 132/76 O2 Sat by Pulse 98 Oximetry Medical Decision Making - Medical Decision Making Was pt. sent in by a medical professional or institution (, PA, LOGGING SPECIALIST, urgent care, hospital, or fci...) When possible be specific @ -No Did you speak to anyone other than the patient for history (EMS, parent, family, police, friend...)? What history was obtained from this source @ -No Did you review nursing and triage notes (agree or disagree)? Why? @ -I reviewed and agree with nursing and triage notes Were old charts reviewed (outside hosp., previous admission, EMS record, old EKG, old radiological studies, urgent care reports/EKG's, fci records)? Report findings @ -Old charts reviewed Differential Diagnosis (chest pain, altered mental status, abdominal pain women, abdominal pain men, vaginal bleeding, weakness, fever, dyspnea, syncope, headache, dizziness, GI bleed, back pain, seizure, CVA, palpatations, mental health, musculoskeletal)? @ -Differential Musculoskeletal Muscular strain, contusion, ligament sprain, fracture, arthritis, septic arthritis, bursitis, cellulitis, muscle spasm, nerve compression, DVT, arterial occlusion, herpes zoster, electrolyte abnormality, tumor.... This is not meant t o be in all inclusive list EKG interpreted by me (3pts min.). @ -None done X-rays interpreted by me (1pt min.). @ -None done CT interpreted by me (1pt min.). @ -None done U/S interpreted by me (1pt. min.). @ -None done What testing was considered but not performed or refused? (CT, X-rays, U/S, labs)? Why? @ -None What meds were considered but not given or refused? Why? @ -None Did you discuss the management of the patient with other professionals (professionals i.e. , PA, LOGGING SPECIALIST, lab, RT, psych nurse, case management social worker, dental hygiene instructor, teacher, geological technical officer, business case analyst)? Give summary @ -No Was smoking cessation discussed for >3mins.? @ -No Was critical care preformed (if so, how long)? @ -No Were there social determinants of health that impacted care today? How? (Homelessness, low income, unemployed, alcoholism, drug addiction, transport ation, low edu. Level, literacy, decrease access to med. care, [facility], rehab)? @ -No Was there de-escalation of care discussed even if they declined (Discuss DNR or withdrawal of care, Hospice)? DNR status @ -No What co-morbidities impacted this encounter? (DM, HTN, Smoking, COPD, CAD, Cancer, CVA, ARF, Chemo, Hep., AIDS, mental health diagnosis, sleep apnea, morbid obesity)? @ -None Was patient admitted / discharged? Hospital course, mention meds given and route, prescriptions, significant lab abnormalities, going to OR and other pertinent info. @ -Patient presents once again for radiculopathy pain of her right arm. Has seen ER multiple times this week for similar complaints. No new complaints. Imaging has already been complaining does show some arthritis in the spine. I discussed with the patient, she agrees this is the same complaints over she has been unable to follow-up. Only presents for pain relief at this time. She'll be given a dose morphine and prescription for 3 days ago. She Was in Agreement with This Plan. I'll Signs within Acceptable Limits. She'll Be Discharged Home at This Time. Patient states she will follow-up with her PCP today. I will provide the patient with a prescription for gabapentin. I instructed the patient to follow up with their PCP in the next 1-3 days. I explained that the patient should return to the emergency department if they experience any worsening symptoms. Strict return precautions were discussed with the patient. The patient expressed understanding of these instructions. I answered all questions that the patient had. The patient was discharged home in good condition with their prescriptions and follow up information. Undiagnosed new problem with uncertain prognosis? @ -No Drug Therapy requiring intensive monitoring for toxicity (Heparin, Nitro, Insulin, Cardizem)? @ -No Were any procedures done? @ -No Diagnosis/symptom? @ -Right arm radiculopathy Acute, or Chronic, or Acute on Chronic? @ -Acute on chronic Uncomplicated (without systemic symptoms) or Complicated (systemic symptoms)? @ -Uncomplicated Side effects of treatment? @ -No Exacerbation, Progression, or Severe Exacerbation? @ -No Poses a threat to life or bodily function? How? (Chest pain, [place], [place], pneumonia, PE, COPD, DKA, ARF, appy, cholecystitis, CVA, Diverticulitis, Homicidal, Margi cidal, threat to staff... and all critical care pts) @ -No Disposition Clinical Impression: Right arm pain, Radiculopathy Disposition: HOME SELF-CARE Condition: Good Prescriptions: Gabapentin [Neurontin] 100 mg PO BID PRN 3 Days #6 cap PRN Reason: Pain Is patient prescribed a controlled substance at d/c from ED?: Yes When asked, does pt state using other controlled substances?: No If prescribed controlled substance>3 days was MAPS reviewed?: Prescribed <3 Days Referrals: Alvino Frank [Primary Care Provider] - 1-2 days Time of Disposition: 03:43
[2023-11-12] MEDS ORDERED: GABAPENTIN 100 MG CAP PO STA (03:40)
== END 2023-11-12 03:58 | disposition home or self-care (01) ==
LOC: EC 02:53
DX: M54.10 Radiculopathy, site unspecified (principal); Z86.718 Personal history of other venous thrombosis and embolism; F31.9 Bipolar disorder, unspecified; F17.200 Nicotine dependence, unspecified, uncomplicated; F12.90 Cannabis use, unspecified, uncomplicated; Z79.899 Other long term (current) drug therapy
CPT/HCPCS: 99283; 96372; J2270